=== PATIENT | female | born 1945 | race Two or more races ===

== ENCOUNTER 2018-04-16 18:58 | Emergency (ER) | payer OTHER ==
[~2018-04-16] VITALS: Ht 154.9 cm; Wt 54.4 kg
[2018-04-16] MEDS ORDERED: ECOTRIN81 MG PO (19:50)
[2018-04-16] MEDS ORDERED: ENALAPRIL MALEA10 MG (19:50)
== END 2018-04-16 20:42 | disposition home or self-care (01) ==
LOC: ER 18:58
DX: R07.89 Other chest pain (principal); F41.8 Other specified anxiety disorders